=== PATIENT | female | born 1950 | race Caucasian/White ===

== ENCOUNTER → 2018-02-12 | Outpatient (CLI) | payer MEDICARE, BC ==
[2018-02-12 11:29] LABS: Blood Urea Nitrogen 18 mg/dL (7-17)
--- NOTE | 2018-02-12 14:10 | CT ---
EXAMINATION TYPE: CT soft tissue neck w con DATE OF EXAM: 02/12/2018 HISTORY: Neck full, throat swelling, pain and tongue tumor (per patient). History of left-sided breas t cancer 2007. Neck pain per order. COMPARISON: CT neck July 09, 2014 CT DLP: 292.7 mGycm. Automated Exposure Control for Dose Reduction was Utilized. TECHNIQUE: CT scan of the neck is performed with IV Contrast, patient injected with 100 mL of Isovue 300, axial images are obtained, coronal and sagittal reformatted images are reviewed. FINDINGS: Airway: Nasopharyngeal and oropharyngeal airways are patent. Region of epiglottis and vallecula shows persistent slight asymmetric filling on the right felt to be benign due to no significant interval c hange from 2014 and likely reflects prominent palatine tonsils near axial image 49. Level of piriform sinus is felt within normal limits. Hypopharyngeal airway into proximal trachea is unremarkable. Thyroid gland is normal in size. Lung apices are grossly clear. Parotid/submandibular glands: No gross abnormality seen. Carotid/Vascular Structures: No significant plaque or stenosis at carotid bulb level bilaterally. The re is codominant vertebral basilar system. Osseous Structures: There is reversal of normal cervical curvature with moderate to severe spurring a nd disc space narrowing C5-C6 and C6-C7 levels. There is anterior fusion plate with hyperdense disc m aterial C7-T1 level. Other: There are scattered subcentimeter lymph nodes seen throughout the neck bilaterally. There is n o suspicious greater than 1 cm neck adenopathy clearly identified. IMPRESSION: No suspicious mass or new finding identified to account for patient's symptoms. No signi ficant change from prior CT.
== END | disposition home or self-care (01) ==
LOC: RADCTMAIN 10:52
PROVIDERS: ATTEND Internal Medicine
DX: M54.2 Cervicalgia (principal)
CPT/HCPCS: 82565; 84520; 70491; 36415; Q9967

== ENCOUNTER 2018-05-04 21:02 | Emergency (ER) | payer MEDICARE, BC ==
[2018-05-04 21:08] VITALS: RESP 18
--- NOTE | 2018-05-04 21:58 | ED ---
General Adult HPI - General Chief complaint: Extremity Injury, Upper Stated complaint: right hand sx turning black Time Seen by Provider: 05/04/18 21:33 Source: patient, RN notes reviewed Mode of arrival: ambulatory Limitations: no limitations - History of Present Illness Initial comments: This is a 67-year-old female who presents to the emergency department with chief complaint of right hand bruising. Patient states that 10 days ago she broke her right wrist. Patient reports right wrist ORIF surgery performed at [facility] by Dr. Martinez on Saturday. She states that she has been wearing a sling. Patient states that she took a nap for 3 hours today and when she woke up she noticed that her fingers have become swollen and were turning black. Patient also reports right elbow pain, swelling and bruising. She states that x-rays were not performed on her right elbow after initial accident. Patient denies any fevers or chills, chest pain or shortness of breath, numbness or tingling. - Related Data Home Medications Medication Instructions Recorded Confirmed Aspirin 81 mg PO DAILY 07/12/14 07/12/14 DULoxetine HCL [Cymbalta] 1 tab PO DAILY 07/12/14 07/13/14 Diclofenac Sodium/Misoprostol 1 each PO BID 07/12/14 07/12/14 [Arthrotec 75 mg-200 Mcg Tab] Rizatriptan Benzoate [Maxalt] 10 mg PO Q4HR PRN 07/12/14 07/13/14 Rosuvastatin [Crestor] 1 tab PO HS 07/12/14 07/13/14 Valsartan/Hydrochlorothiazide 1 tab PO BID 07/12/14 07/13/14 [Diovan Hct 80-12.5 mg Tablet] Allergies Allergy/AdvReac Type Severity Reaction Status Date / Time jeffrey Allergy Rash/Hives Uncoded 05/04/18 21:07 Review of Systems ROS Statement: Those systems with pertinent positive or pertinent negative responses have been documented in the HPI. ROS Other: All systems not noted in ROS Statement are negative. Past Medical History Past Medical History: Cancer, Hyperlipidemia, Hypertension, Neurologic Disorder Additional Past Medical History / Comment(s): HX LT BREAST CA-2006- HAD 8 WEEKS OF RADIATION DAILY. HX MIGRAINES. SOB & DRY COUGH LAST 3-4 MONTHS- TIRES EASILY-HAS GOTTEN WORSE- PREDNISONE DOSE PAC TAKEN IN 2013. STRESS INCONT. - WEARS PAD History of Any Multi-Drug Resistant Organisms: None Reported Past Surgical History: Back Surgery, Breast Surgery, Hysterectomy, Joint Replacement Additional Past Surgical History / Comment(s): LT LUMPECTOMY 2007. DEANGELO. HIP REPLACEMENTS. DISECTOMY NECK. right wrist surgery Past Anesthesia/Blood Transfusion Reactions: No Reported Reaction Past Psychological History: No Psychological Hx Reported Smoking Status: Never smoker Past Alcohol Use History: Rare Past Drug Use History: None Reported - Past Family History Father Family Medical History: Cancer Additional Family Medical History / Comment(s): LEUKEMIA General Exam - General Exam Comments Initial Comments: General: Awake and alert, well-developed; in no apparent distress. HEENT: Head atraumatic, normocephalic. Pupils are equal, round and reactive to light. Extraocular movements intact. Oropharynx moist without erythema or exudate. Neck: Supple. Normal ROM. Cardiovascular: Regular rate and rhythm. No murmurs, rubs or gallops. Chest symmetrical. Respiratory: Lungs clear to auscultation bilaterally. No wheezes, rales or rhonchi. Normal respiratory effort with no use of accessory muscles. Musculoskeletal: Normal range of motion bilateral upper and lower extremities. Right wrist cast is intact with a linear incision to allow for loosening of the cast as needed. There is generalized soft tissue swelling and bruising of the right fingers and elbow. There is tenderness of the right proximal ulna. Sensation is intact. No obvious gross deformities. Compartments are soft. Skin: [place], warm and dry without rashes. Neurological: Alert and oriented x3. CN II-XII grossly intact. Speech is fluent and answers are appropriate. No focal neuro deficits. Psychiatric: Normal mood and affect. No overt signs of depression or anxiety noted. Limitations: no limitations Course Vital Signs 05/04/18 21:04 Temperature 98.6 F Pulse Rate 82 Respiratory 18 Rate Blood Pressure 127/87 O2 Sat by Pulse 98 Oximetry - Reevaluation(s) Reevaluation #1: Prosthetic Dentist attempted to contact Dr. Martinez, patient's hand surgeon. She was informed by the answering service that they do not provide service to our facility. Unable to get in contact with patient's hand surgeon. 05/04/18 22:11 Medical Decision Making - Medical Decision Making This is a 67-year-old female who presents to the emergency department with chief complaint of right finger bruising. Patient underwent ORIF surgery of the right wrist on Saturday. She reports swelling and bruising to the fingers that she noticed today. On physical examination, there is generalized bruising and swelling to the fingers on the right hand. Sensation is intact. Compartments are soft. Patient reports right elbow pain, swelling and bruising as well. An x-ray was obtained which revealed no acute fractures. It does note soft tissue swelling. I attempted to get into contact with patient's hand surgeon, Dr. Martinez at [facility]. The press secretary was informed by the answering service that I could not be in contact with the surgeon as they do not work out of this facility. Case was discussed with attending physician, Dr. Loving, who also evaluated the patient. Patient likely has dependent edema and ecchymosis following the recent surgery. No concern for infection or compartment syndrome. Recommended patient follow-up with her surgeon tomorrow morning as scheduled. Her vital signs are stable and she is in no acute distress. She will be discharged home at this time. Patient is in agreement with plan and voices understanding. All questions were answered. - Radiology Data Radiology results: report reviewed X-ray right elbow impression: Soft tissue swelling. No fracture seen. Disposition Clinical Impression: Postoperative ecchymosis Disposition: HOME SELF-CARE Condition: Good Instructions: Ecchymosis (ED) Additional Instructions: Please follow up with hand surgeon tomorrow. Please follow up with primary care provider within 1-2 days. Return to emergency department if symptoms should worsen or any concerns arise. Is patient prescribed a controlled substance at d/c from ED?: No Referrals: Marcin Medina MD [Primary Care Provider] - 1-2 days Time of Disposition: 23:02
--- NOTE | 2018-05-04 22:22 | XR ---
EXAMINATION TYPE: XR elbow complete RT DATE OF EXAM: 05/04/2018 COMPARISON: NONE HISTORY: Right elbow pain TECHNIQUE: 3 views FINDINGS: There is soft tissue swelling around the elbow. I see no fracture nor dislocation. Joint sp aces are normal. There is no sign of elbow joint effusion. IMPRESSION: Soft tissue swelling. No fracture seen.
[2018-05-04 23:02] VITALS: BP 146/92; PULSE 81; TEMP 98.1
== END 2018-05-04 23:01 | disposition home or self-care (01) ==
LOC: EC 21:02
DX: M96.840 Postprocedural hematoma of a musculoskeletal structure following a musculoskeletal system procedure (principal); E78.5 Hyperlipidemia, unspecified; I10 Essential (primary) hypertension; Z96.643 Presence of artificial hip joint, bilateral; Z85.3 Personal history of malignant neoplasm of breast; Z98.890 Other specified postprocedural states; Z79.82 Long term (current) use of aspirin; Z79.1 Long term (current) use of non-steroidal anti-inflammatories (NSAID); Z79.899 Other long term (current) drug therapy; Z91.048 Other nonmedicinal substance allergy status
CPT/HCPCS: 99283

== ENCOUNTER → 2018-10-31 | Outpatient (CLI) | payer MEDICARE, BC ==
--- NOTE | 2018-10-31 19:10 | US ---
EXAMINATION TYPE: US thyroid st tissue head/neck DATE OF EXAM: 10/31/2018 COMPARISON: NONE CLINICAL HISTORY: R07.0 Throat irritation and pain. GLAND SIZE: Right Lobe: 3.8 x 1.8 x 1.9 cm Overall Parenchyma: heterogenous Left Lobe: 4.0 x 1.5 x 1.4cm Overall Parenchyma: heterogeneous Isthmus Thickness 0.3 cm NODULES RIGHT: # of nodules measured on right: 0 LEFT: # of nodules measured on left: 1 1. 0.8 X 0.5 x 0.8 cm hypoechoic solid nodule at the mid pole with well-defined margins. This nodu le is wider than tall and shows intranodular vascularity. No prior. ISTHMUS: # of nodules measured in the isthmus: 0 Bilateral neck scanned, no evidence of lymphadenopathy. IMPRESSION: Subcentimeter left-sided thyroid nodule
== END | disposition home or self-care (01) ==
LOC: RADUSWWP 15:06
PROVIDERS: ATTEND Internal Medicine
DX: E04.1 Nontoxic single thyroid nodule (principal)
CPT/HCPCS: 76536

== ENCOUNTER → 2019-11-10 | Outpatient (CLI) | payer MEDICARE, BC ==
--- NOTE | 2019-11-11 09:25 | MM ---
Reason for exam: additional evaluation requested from prior study. Last mammogram was performed 1 year and 1 month ago. History: Patient is postmenopausal and has history of high-risk lesion on a previous biopsy at age 56. Family history of breast cancer in aunt and premenopausal breast cancer in sister at age 40. Excisional biopsy of the left breast, January 01, 2007. High risk left mammotome panel of the left breast, December 13, 2006. Radiation therapy of the left breast. Physical Findings: Nurse did not find any significant physical abnormalities on exam. MG 3D Diag Mammo W/Cad DEANGELO Bilateral CC and MLO view(s) were taken. XCCL view(s) were taken of the left breast. Prior study comparison: October 20, 2018, bilateral MG 3d diag mammo w/cad DEANGELO. May 17, 2016, bilateral MG 3d diag mammo w/cad DEANGELO. The breast tissue is heterogeneously dense. This may lower the sensitivity of mammography. No significant new findings when compared with previous films. These results were verbally communicated with the patient and result sheet given to the patient on 11/10/19. ASSESSMENT: Benign, BI-RAD 2 RECOMMENDATION: Follow-up diagnostic mammogram of both breasts in 1 year. Manage patient on a clinical basis.
== END | disposition home or self-care (01) ==
LOC: RADMAMWWP 09:34
PROVIDERS: ATTEND Obstetrics & Gynecology
DX: N64.4 Mastodynia (principal); R92.8 Other abnormal and inconclusive findings on diagnostic imaging of breast
CPT/HCPCS: 77066; G0279; 77062

== ENCOUNTER → 2019-12-31 | Outpatient (CLI) | payer MEDICARE, BC ==
--- NOTE | 2019-12-31 16:44 | US ---
EXAMINATION TYPE: US thyroid st tissue head/neck DATE OF EXAM: 12/31/2019 COMPARISON: Prior thyroid ultrasound October 31, 2018 CLINICAL HISTORY: E04.1 Nontoxic single thyroid nodule. Neck pain. GLAND SIZE: Right Lobe: 3.5 x 1.6 x 1.4 cm Overall Parenchyma: homogenous Left Lobe: 3.3 x 1.9 x 1.2 cm Overall Parenchyma: homogeneous Isthmus Thickness: cm NODULES RIGHT: # of nodules measured on right: 0 LEFT: # of nodules measured on left: 2 1. 0.9 X 0.8 x 0.6 cm hypoechoic nodule at the mid pole with well-defined margins. This nodule is wider than tall and shows intranodular vascularity. Prior size: 0.8 x 0.8 x 0.5 cm 2. 0.5 X 0.3 x 0.3 cm hypoechoic nodule at the upper pole with well-defined margins. This nodule is wider as tall and shows intranodular vascularity. Prior size: no prior ISTHMUS: # of nodules measured in the isthmus: 0 Bilateral neck scanned, no evidence of lymphadenopathy. Persistent homogeneous small size thyroid with scattered small left-sided nodules. IMPRESSION: Overall stable findings, no new or enlarging greater than 1 cm nodules.
== END | disposition home or self-care (01) ==
LOC: RADUSWWP 15:56
PROVIDERS: ATTEND Internal Medicine
DX: E04.1 Nontoxic single thyroid nodule (principal)
CPT/HCPCS: 76536

== ENCOUNTER → 2022-06-15 | Outpatient (CLI) | payer MEDICARE, BC ==
--- NOTE | 2022-06-16 14:17 | US ---
EXAMINATION TYPE: US pelvic complete DATE OF EXAM: 06/15/2022 COMPARISON: NONE CLINICAL HISTORY: 71-year-old female N83.202 Ovarian cyst. Left ovarian cyst on outside CT. Partial h ysterectomy at 31 years of age. Patient still has both ovaries. Hx 1 C section. . TECHNIQUE: Transabdominal sonographic images of the pelvis were acquired. Patient refused transvagina l exam. Date of LMP: At time of hysterectomy 31 years old. FINDINGS: EXAM MEASUREMENTS: 1. Uterus: Surgically absent 2. Endometrium: Surgically absent 3. Right Ovary: Not visualized 4. Left Ovary: Not visualized 5. Bilateral Adnexa: Appears wnl 6. Posterior cul-de-sac: Appears wnl IMPRESSION: Status post hysterectomy. Unable to visualize either ovary. No pelvic free fluid seen.
== END | disposition home or self-care (01) ==
LOC: RADUSWWP 14:45
PROVIDERS: ATTEND Obstetrics & Gynecology
DX: N83.202 Unspecified ovarian cyst, left side (principal); Z90.710 Acquired absence of both cervix and uterus
CPT/HCPCS: 76856

== ENCOUNTER → 2023-01-30 | Outpatient (CLI) | payer MEDICARE, BC ==
--- NOTE | 2023-01-30 08:06 | MM ---
Reason for Exam: Follow-up at short interval from prior study. Last mammogram was performed 1 year(s) and 2 month(s) ago. Patient History: Menarche at age 14. First Full-Term at age 22. Hysterectomy at age 31. Postmenopausal. Breast cancer, left, age 56. Previous chest radiation therapy. 01/01/2007, Excisional Biopsy on the Left side. 12/13/2006, High risk Core Biopsy on the left side. 2003, Radiation Therapy on the left side. Maternal aunt had breast cancer under age 50. Sister had breast cancer, age 40. Prior Study Comparison: 05/02/1995 Screening Mammogram, Unknown. 05/14/1996 Screening Mammogram, Unknown. 10/20/2004 Bilateral Screening Mammogram, [facility]. 10/22/2005 Bilateral Screening Mammogram, [facility]. 11/21/2006 Bilateral Screening Mammogram, [facility]. 11/28/2006 Left Diagnostic Mammogram, [facility]. 01/01/2007 Left Diagnostic Ultrasound, [facility]. 03/18/2008 Bilateral Diagnostic Mammogram, [facility]. 03/26/2011 Screening Mammogram, [facility]. 04/07/2012 [facility]. 11/09/2014 Bilateral Diagnostic Mammogram, [facility]. 05/17/2016 Bilateral Diagnostic Mammogram, [facility]. 10/20/2018 Bilateral Diagnostic Mammogram, [facility]. 10/20/2018 Left Diagnostic Ultrasound, [facility]. 11/10/2019 Bilateral Diagnostic Mammogram, [facility]. 12/18/2021 Bilateral MG 3D diag mammo w/cad DEANGELO, [facility]. Tissue Density: The breast tissue is heterogeneously dense. This may lower the sensitivity of mammography. Findings: Analyzed By CAD. Postoperative changes of left-sided lumpectomy and radiation therapy. No evidence for recurrent or residual mass. The right breast demonstrates no evidence for mass or distortion. Benign calcifications are present. Overall Assessment: Benign, BI-RAD 2 Management: Screening Mammogram of both breasts. . Results were given to the patient verbally at the time of exam. Patient should continue monthly self-breast exams. A clinical breast exam by your physician is recommended on an annual basis. This exam should not preclude additional follow-up of suspicious palpable abnormalities. Note on Norma scores and lifetime risk: 1. A Norma score greater than 3% is considered moderate risk. If this is the case, consider specialist referral to assess eligibility for a risk reducing agent. 2. If overall lifetime risk for the development of breast cancer is 20% or higher, the patient may qualify for future screening with alternating mammogram and breast MRI. Electronically signed and approved by: Aris Henderson M.D. Radiologis
== END | disposition home or self-care (01) ==
LOC: RADMAMWWP 07:39
PROVIDERS: ATTEND Obstetrics & Gynecology
DX: Z85.3 Personal history of malignant neoplasm of breast (principal); Z80.3 Family history of malignant neoplasm of breast; Z78.0 Asymptomatic menopausal state
CPT/HCPCS: 77066; G0279; 77062

== ENCOUNTER → 2023-02-07 | Outpatient (CLI) | payer MEDICARE, BC ==
--- NOTE | 2023-02-07 19:13 | US ---
EXAMINATION TYPE: US pelvic complete DATE OF EXAM: 02/07/2023 COMPARISON: 06/15/2022 CLINICAL INDICATION: Female, 72 years old with history of N83.202 UNSPECIFIED OVARIAN CYST, LEFT SIDE ; Outside imaging showed "quarter sized cyst" per pt. Hysterectomy at age 31 TECHNIQUE: Transabdominal (TA). Transabdominal sonographic images of the pelvis were acquired. Date of LMP: post-irvin EXAM MEASUREMENTS: Uterus: Surgically absent Endometrial Stripe: Surgically absent Right Ovary: 1.8x1.1x1.5 cm Left Ovary: obscured by bowel gas 1. Uterus: Surgically absent 2. Endometrium: Surgically absent 3. Right Ovary: wnl 4. Left Ovary: obscured by bowel gas, could not confidently discern an ovary, no pathology seen 5. Bilateral Adnexa: Obscured by overlying bowel gas 6. Posterior cul-de-sac: wnl Insurance Verifier notes: Patient declined transvaginal exam. Patient was anxious about the cyst due to hx o f breast cancer. Distended hypoechoic bowel loops seen throughout pelvic area, patient complains of digestive issues IMPRESSION: 1. Status post cholecystectomy. Unable to visualize the left ovary at this time. 2. Small postmenopausal right ovary measuring 1.8 cm.
== END | disposition home or self-care (01) ==
LOC: RADUSWWP 14:48
PROVIDERS: ATTEND Obstetrics & Gynecology
DX: N83.202 Unspecified ovarian cyst, left side (principal); Z90.49 Acquired absence of other specified parts of digestive tract; Z78.0 Asymptomatic menopausal state
CPT/HCPCS: 76856

== ENCOUNTER → 2024-01-16 | Outpatient (CLI) | payer MEDICARE, BC ==
--- NOTE | 2024-01-16 18:47 | MR ---
EXAMINATION TYPE: MR brain wo con DATE OF EXAM: 01/16/2024 COMPARISON: None HISTORY: Headaches, memory loss. CONTRAST: Performed utilizing 0 mL intravenous Gadavist gadolinium contrast. TECHNIQUE: Multiplanar, multiecho imaging on a 3.0 María magnet is performed through the brain. Stud y is performed within 24 hours of arrival to the hospital. The craniovertebral junction is normal. The pituitary is normal. Diffusion-weighted imaging is performed. No abnormal hyperintensity is present to suggest an acute i ntracranial infarct or acute ischemic change. There are scattered patchy areas of hyperintensity on T2 and Inversion Recovery weighted sequences wh ich are non-specific but can be related to microvascular ischemic changes. This includes centrum semi ovale periventricular and brainstem. Differential diagnosis could include multiple sclerosis vasculi tis Lyme disease among other etiologies. Ventricles and sulci are appropriate for the patient age. IMPRESSION: 1. Patchy periventricular and deep white matter hyperintensities most likely on the basis of chronic white matter ischemic change.
== END | disposition home or self-care (01) ==
LOC: RADMRIMAIN 15:24
PROVIDERS: ATTEND Internal Medicine
DX: R41.3 Other amnesia (principal)
CPT/HCPCS: 70551

== ENCOUNTER → 2024-02-03 | Outpatient (CLI) | payer MEDICARE, BC ==
--- NOTE | 2024-02-03 15:39 | MM ---
Reason for Exam: Additional evaluation requested from prior study. Last screening mammogram was performed 12 month(s) ago. Patient History: Menarche at age 14. First Full-Term at age 22. Hysterectomy at age 31. Postmenopausal. Breast cancer, left, age 56. Previous chest radiation therapy. 01/01/2007, Excisional Biopsy on the Left side. 12/13/2006, High risk Core Biopsy on the left side. 2003, Radiation Therapy on the left side. Maternal aunt had breast cancer under age 50. Sister had breast cancer, age 40. Tissue Density: The breasts are heterogeneously dense, which may obscure small masses. Findings: Analyzed By CAD. The pattern is symmetrical. No significant interval change. Benign round calcifications are present bilaterally. No suspicious groups of microcalcifications, spiculated or lobular masses, architectural distortion or other secondary signs of malignancy are mammographically apparent. Overall Assessment: Benign, BI-RAD 2 Management: Screening Mammogram of both breasts in 1 year. A negative mammogram report should not preclude additional follow up of suspicious palpable abnormalities. Patient should continue monthly self breast exam. A clinical breast exam by your physician is recommended on an annual basis and results should be correlated with mammographic findings. Note on Norma scores and lifetime risk: 1. A Norma score greater than 3% is considered moderate risk. If this is the case, consider specialist referral to assess eligibility for a risk reducing agent. 2. If overall lifetime risk for the development of breast cancer is 20% or higher, the patient may qualify for future screening with alternating mammogram and breast MRI. Electronically signed and approved by: Obi Maldonado D.O. Radiologis
== END | disposition home or self-care (01) ==
LOC: RADMAMWWP 15:18
PROVIDERS: ATTEND Internal Medicine
DX: R92.333 Mammographic heterogeneous density, bilateral breasts (principal); Z85.3 Personal history of malignant neoplasm of breast; Z78.0 Asymptomatic menopausal state; Z80.3 Family history of malignant neoplasm of breast
CPT/HCPCS: 77066; G0279; 77062